=== PATIENT | female | born 1940 | race Caucasian/White ===

== ENCOUNTER 2018-06-27 15:15 | Inpatient (IN) ==
[2018-06-27] MEDS ORDERED: Artificial Tears SOLN 15 ML BOTTLE BOTH EYES PRN (15:32)
[2018-06-27] MEDS ORDERED: Fluticasone Propionate Nasal 50 MCG/SPRAY BOTTLE NS PRN (15:32)
[2018-06-27] MEDS ORDERED: Nystatin POWDER 30 GM BOTTLE TP PRN (15:32)
[2018-06-27] MEDS ORDERED: MAGNESIUM OXIDE 400 MG PO SCH (16:00)
[2018-06-27] MEDS ORDERED: Levalbuterol Neb 1.25 MG/3 ML ONE (16:36)
[2018-06-27] MEDS: Levalbuterol Neb 1.25 MG/3 ML IH SCH ×2 (16:38→22:51)
[2018-06-27] MEDS: Insulin NPH/REG 70/30 100 UNIT/ML (x5UNIT) SQ SCH (18:06)
[2018-06-27] MEDS: *HR* Warfarin 5 MG TABLET PO SCH (18:10)
[2018-06-27] MEDS: *HR* Enoxaparin 150 MG/ML SYRINGE SQ SCH (18:13)
[2018-06-27] MEDS ORDERED: Dextrose 4 GM Chewable Tablets PO PRN ×2 (18:41)
[2018-06-27] MEDS ORDERED: Dextrose Gel 15 GM/37.5 ML TUBE PO PRN ×2 (18:41)
[2018-06-27] MEDS ORDERED: D5% in Water 1,000 ML IVC PRN (18:41)
[2018-06-27] MEDS ORDERED: *HR* Dextrose 50 % in Water (Syg) 50 ML SYRINGE IVP PRN (18:41)
[2018-06-27] MEDS: Insulin LISPRO 300 UNITS/3 ML VIAL SQ SCH (21:39)
[2018-06-28] MEDS: Levalbuterol Neb 1.25 MG/3 ML IH SCH ×4 (05:35→21:41)
[2018-06-28] MEDS: *HR* Enoxaparin 150 MG/ML SYRINGE SQ SCH (05:45)
[2018-06-28 07:01] LABS: Basophils % 0.1 %; Eosinophils % 0.2 %; Hematocrit 27.5 % (35.3-44.9); Hemoglobin 8.4 g/dL (11.5-15.4); Immature Granulocytes % 1.7 % (0-4); Lymphocytes # 1.7 K/mcL (0.6-4.6); Lymphocytes % 13.7 %; Mean Corpuscular HGB Conc 30.5 g/dL (31.6-35.5); Mean Corpuscular Hemoglobin 27.5 pg (28.0-33.3); Mean Corpuscular Volume 89.9 fL (83.0-100.0); Mean Platelet Volume 10.7 fL (9.4-12.4); Monocytes # 1.3 K/mcL (0.0-1.3); Monocytes % 10.3 %; Neutrophils # 9.1 K/mcL (1.6-8.9); Nucleated Red Blood Cells 0.2 /100 WBC (0); Platelet Count 297 K/mcL (140-400); Red Blood Count 3.06 M/mcL (3.82-4.97); Red Cell Distribution Width 18.6 % (11.5-14.5)
[2018-06-28 07:18] LABS: INR 2.2; Prothrombin Time 24.7 Seconds (9.4-12.1)
[2018-06-28 07:20] LABS: Activated Partial Thrombo Time 36.3 Seconds (26.0-36.0)
[2018-06-28 07:29] LABS: BUN/Creatinine Ratio 51 (6-26); Blood Urea Nitrogen 43 mg/dL (8-23); Calcium 8.7 mg/dL (8.6-10.3); Carbon Dioxide 32 mEq/L (23-29); Chloride 103 mEq/L (98-107); Glucose 105 mg/dL (70-105); Osmolality,Calculated 301 (280-300); Sodium 140 mEq/L (136-145); eGFR For Non-African Americans > 60 (> 60)
[2018-06-28] MEDS: Furosemide 20 MG TABLET PO SCH (08:29)
[2018-06-28] MEDS: Multivit/Ca/Min/Fe/FA 1 TAB TABLET PO SCH (08:29)
[2018-06-28] MEDS: Folic Acid 1 MG TABLET PO SCH (08:29)
[2018-06-28] MEDS: Aspirin Enteric Coated 81 MG Tablet PO SCH (08:29)
[2018-06-28] MEDS: Sulfamethoxazole/Trimeth DS 1 EACH TABLET PO SCH (08:29)
[2018-06-28] MEDS: Cholecalciferol (D-3) 1,000 UNIT TABLET PO SCH (08:30)
[2018-06-28] MEDS: BuPROPion XL (24 HR) 150 MG TABLET PO SCH (08:30)
[2018-06-28] MEDS: Diltiazem CD (24hr) 180 MG CAPSULE PO SCH (08:31)
[2018-06-28] MEDS: Insulin LISPRO 300 UNITS/3 ML VIAL SQ SCH ×4 (08:31→21:27)
[2018-06-28] MEDS ORDERED: *HR* Dextrose 50 % in Water (Vial) 50 ML VIAL IVP PRN (10:00)
[2018-06-28] MEDS: Insulin NPH/REG 70/30 100 UNIT/ML (x5UNIT) SQ SCH ×2 (12:00→19:22)
--- NOTE | 2018-06-28 16:53 | Internal Med History&Physical ---
Date of Encounter: 06/28/18 Time of Encounter: 15:50 Assessment and Plan (1) Bacterial infection due to Proteus mirabilis Current visit: No Status: Acute Continue ertapenem through 07/03/2018. Lactobacillus will be added. (2) Pulmonary interstitial fibrosis Current visit: No Status: Chronic Continue oxygen 09/11. (3) Hypomagnesemia Current visit: No Status: Acute Monitor magnesium level. (4) Anemia Current visit: No Status: Chronic Check anemia testing in a.m. Qualifiers: Anemia type: iron deficiency Iron deficiency anemia type: unspecified iron deficiency Qualified Code(s): D50.9 - Iron deficiency anemia, unspecified (5) Acute on chronic diastolic CHF (congestive heart failure) Current visit: No Status: Acute Check BN peptide in a.m. (6) Type 2 diabetes mellitus Current visit: No Status: Chronic Hemoglobin A1c was 9.3% on 04/16/2018. Recheck in a.m. 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 Qualifiers: Atrial fibrillation type: chronic Qualified Code(s): I48.2 - Chronic atrial fibrillation (8) Right leg DVT Current visit: No Status: Chronic Continue Coumadin and monitor pro time Qualifiers: Affected thrombotic vein of extremity: unspecified vein of extremity Chronicity: acute Qualified Code(s): I82.401 - Acute embolism and thrombosis of unspecified deep veins of right lower extremity (9) Weakness Current visit: No Status: Acute PT and OT evaluations have been ordered. Internal Medicine - H&P: HPI Chief complaint: Cough and dyspnea Admitted From: Hospital to Hospital Transfer Plans for Post Hospital Care: Home History of present illness: Ms. Robles is a 78 year old female who was hospitalized at [facility] June 21- with diagnosis of bilateral pneumonia. Sputum and urine culture grew MDR Proteus mirabilis. She was treated during hospitalization with Zosyn. She was discharged to swing bed at [facility] to received ertapenem for 6 days. She also will receive PT and OT for strengthening prior to returning home. Respiratory history is significant for having smoked from approximately age 26- 48. She had pulmonary function testing done 07/03/2015 which showed FVC 67% predicted, FEV1 82% predicted, FEV1/FVC 92%, MVV 93% predicted, RV 70% predicted, and DLCO (corrected) 76% predicted. She was diagnosed with restrictive lung disease. She claims she was diagnosed with idiopathic pulmonary fibrosis at [facility] approximately 2014. Lung biopsy has not been done and she does not receive therapy specific for this. She uses oxygen at home 09/11. She does not recall being tested for sleep apnea. Past Med Surg Social Fam HX - Past Medical History Medical history: arthritis, asthma, atrial fibrillation, CHF, COPD, CVA, DVT, diabetes, hypertension, other Additional medical history: Chronic UTI. Pulmonary fibrosis Psychiatric history: depression - Past Surgical History Surgical History: , cataract, cholecystectomy, herniorrhaphy, knee replacement, orthopedic, other Additional surgical history: Shoulder replacement bilat. L Knee Replacement - Social History Smoking Status: Former smoker Smokeless Tobacco Status: No Alcohol use: none Drug use: none - Family History Brother Hx Family Cancer: Yes Mother Living Status: Hx Family Cardiac Disorders: Yes (patient thinks it was A fib.) Hx Family Respiratory Disorders: No Hx Family Cancer: No Hx Family GI Disorders: No Hx Family Endocrine Disorder: No Hx Family Neurologic Disorders: Yes (Epilepsy) Sister Hx Family Cardiac Disorders: Yes (pacemaker, CHF) Hx Family Cancer: Yes Hx Family Endocrine Disorder: Yes (DM) Internal Medicine - H&P: Meds Escitalopram [Lexapro] 20 mg PO HS 12/29/15 [History] Lipase/Protease/Amylase [Beth Dr 12,000 Units Capsule] 36,000 tab PO TID 10/14/16 [History] Loperamide HCl [Imodium A-D] 2 mg PO QID PRN 10/14/16 [History] Fluticasone Propionate Nasal [Flonase] 2 spr NS BID PRN 10/01/17 [History] Multivitamin [One Daily Multivitamin] 1 tab PO DAILY 11/01/17 [History] Aspirin [Adult Aspirin] 81 mg PO DAILY 02/11/18 [History] Bupropion HCl [Wellbutrin Xl] 300 mg PO DAILY 02/16/18 [History] Magnesium Oxide [Magnesium] 400 mg PO 5XD 04/12/18 [History] Albuterol Sulfate [Proair Hfa] 2 puff IH DAILY PRN 06/13/18 [History] Cholecalciferol (Vitamin D3) [Vitamin D3] 2,000 unit PO DAILY 06/13/18 [History] Dextran 70/Hypromellose [Artificial Tears Eye Drops] 2 drop BOTH EYES DAILY PRN 06/13/18 [History] Ferrous Sulfate [Iron] 650 mg PO DAILY 06/13/18 [History] Folic Acid 1 mg PO DAILY 06/13/18 [History] Insulin NPH Hum/Reg Insulin Hm [Humulin 70/30 Kwikpen] 80 unit SQ BID 06/13/18 [History] Mupirocin [Bactroban Oint] 1 appl NS DAILY PRN 06/13/18 [History] Nystatin POWDER [Nystop] 1 appl TP BID PRN 06/13/18 [History] Diltiazem CD (24hr) [Cardizem CD] 360 mg PO DAILY 30 Days #60 cap.er.24h 06/17/18 [Rx] Levalbuterol Neb [Xopenex Neb] 1.25 mg IH Q6H 14 Days #42 vial.neb 06/17/18 [Rx] Metoprolol [Lopressor] 12.5 mg PO BID 30 Days #60 tablet 06/17/18 [Rx] Warfarin [Coumadin] 5 mg PO DAILY 06/24/18 [History] Enoxaparin [Lovenox] 120 mg SQ Q12H 30 Days #30 syringe 06/27/18 [Rx] Furosemide [Lasix] 20 mg PO DAILY 30 Days #30 tablet 06/27/18 [Rx] Sulfamethoxazole/Trimeth DS [Bactrim DS] 1 each PO DAILY 06/27/18 [History] Sulfamethoxazole/Trimeth DS [Bactrim DS] 1 each PO DAILY 06/27/18 [History] Allergy/AdvReac Type Severity Reaction Status Date / Time levofloxacin [From Levaquin] Allergy Seizure Verified 06/13/18 21:08 hydromorphone [From Dilaudid] AdvReac Vomiting Verified 06/13/18 21:08 morphine AdvReac Vomiting Verified 06/13/18 21:08 oxycodone [From Percocet] AdvReac Vomiting Verified 06/13/18 21:08 propoxyphene AdvReac Vomiting Verified 06/13/18 21:08 [From Michael-N 100] All Systems PM: A 10-system review of systems was performed and is negative for pertinent findings except as documented above in the HPI. Review of systems: Gen.: She reports she has lost 30 pounds of weight in the last 6 months. This is not confirmed by reviewing hospitalization weights showing [facility] hospitalization May 2017 (130 kg) decrease to present weight of 125.191 kg. Cardiovascular: She has history of hypertension and chronic atrial fibrillation. She has history of diastolic heart failure. Echocardiogram 04/21/2018 showed LVEF of 55%. Diastolic function could not be quantitatively assessed because of atrial fibrillation. There was mild tricuspid regurgitation and moderate pulmonary hypertension with estimated RVSP of 51 mmHg. The interventricular septum and posterior wall thickness measurements were 1.07 and 0.69 cm respectively. She has history of right leg DVT diagnosed a few weeks ago. She was previously on Eliquis and aspirin but states she is now on Coumadin. She denies pulmonary embolus. Respiratory: As per history of present illness GI: She has had cholecystectomy. She reports exocrine pancreatic insufficiency and uses Creon. She denies disorders of her liver. : She has had occasional UTIs. She denies other kidney or bladder disorders. Neurologic: She reports having a "stroke" in 2015 with resolution of all neurolo gic deficits within 24 hours. She was previously on aspirin and Eliquis but states she is now on Coumadin and does not take aspirin. Her medication discharge list from [facility] does include aspirin. Endocrine: She was diagnosed with DM 2 approximately 40 years ago. She denies thyroid disease or hyperlipidemia Hematology/oncology: She has had long-standing anemia and received iron infusion recently. She denies internal malignancies or other blood disorders. Psychiatric: She has depression but denies anxiety or other mental health issues. Musko skeletal: She has DJD. She has had bilateral total shoulder replacements and left total knee replacement. She had right arm fracture with surgical re pair remotely. She denies gout. - Constitutional Vitals: Temp Pulse Resp BP Pulse Ox 97.8 F 89 18 131/69 97 06/28/18 07:00 06/28/18 07:00 06/28/18 15:56 06/28/18 07:00 06/28/18 15:56 Exam: Gen.: She is a well-developed obese female sitting in a chair at bedside who appears in no acute distress HEENT: Head is atraumatic and normocephalic. Eyes: EOMI. There is no scleral icterus. Mouth: Mucosa is moist. Neck: Supple and nontender. There is no thyromegaly or adenopathy noted. Heart: Irregularly irregular without murmurs or gallops Lungs: No wheezes crackles or egophony are heard. Abdomen: She has a large abdomen. It is nontender to palpation. Extremities: She has trace edema of the lower anterior shins bilaterally. Dorsalis pedis and posterior tibial pulses are trace palpable bilaterally. Neurologic: Mental status: She is talkative and a good historian. Cranial nerves: Smile is symmetric. Forehead wrinkles bilaterally. Tongue protrudes midline. EOMI. Motor: There is no pronator drift. Cerebellar: Finger to nose is intact bilaterally. Skin: Warm and dry Internal Med - H&P Results - Labs CBC & Chem 7: 06/28/18 06:36 06/28/18 06:36 Labs: Short CBC 06/28/18 Range/Units 06:36 WBC 12.3 H (4.3-11.1) K/mcL Hgb 8.4 L (11.5-15.4) g/dL Hct 27.5 L (35.3-44.9) % Plt Count 297 (140-400) K/mcL Neutrophils # 9.1 H (1.6-8.9) K/mcL BMP 06/28/18 06:36 Sodium 140 Potassium 4.0 Chloride 103 Carbon Dioxide 32 H BUN 43 H Creatinine 0.84 Glucose 105 Calcium 8.7
[2018-06-28] MEDS: *HR* Warfarin 5 MG TABLET PO SCH (18:30)
[2018-06-28] MEDS: Ertapenem 1,000 MG in 0.9 % Sodium Chloride Mini Bag 100 ML IVPB SCH (19:16)
[2018-06-28] MEDS: Lactobacillus 1 EACH CAP.SPRINK PO SCH (21:31)
[2018-06-29] MEDS: Levalbuterol Neb 1.25 MG/3 ML IH SCH ×4 (05:29→23:24)
[2018-06-29 07:52] LABS: INR 2.2
[2018-06-29] MEDS: Cholecalciferol (D-3) 1,000 UNIT TABLET PO SCH (07:55)
[2018-06-29] MEDS: Aspirin Enteric Coated 81 MG Tablet PO SCH (07:55)
[2018-06-29] MEDS: Folic Acid 1 MG TABLET PO SCH (07:56)
[2018-06-29] MEDS: Multivit/Ca/Min/Fe/FA 1 TAB TABLET PO SCH (07:56)
[2018-06-29] MEDS: BuPROPion XL (24 HR) 150 MG TABLET PO SCH (07:56)
[2018-06-29] MEDS: Diltiazem CD (24hr) 180 MG CAPSULE PO SCH (07:57)
[2018-06-29] MEDS: Lactobacillus 1 EACH CAP.SPRINK PO SCH ×2 (07:57→20:17)
[2018-06-29] MEDS: Insulin NPH/REG 70/30 100 UNIT/ML (x5UNIT) SQ SCH ×2 (07:58→17:32)
[2018-06-29] MEDS: Furosemide 20 MG TABLET PO SCH (07:58)
[2018-06-29] MEDS: Insulin LISPRO 300 UNITS/3 ML VIAL SQ SCH ×4 (07:58→20:19)
[2018-06-29] MEDS: Sulfamethoxazole/Trimeth DS 1 EACH TABLET PO SCH (07:58)
[2018-06-29 08:06] LABS: Magnesium 1.5 mg/dL (1.6-2.6)
[2018-06-29 09:08] LABS: Estimated Average Glucose 197 mg/dl; Hemoglobin A1C 8.5 %
[2018-06-29 10:07] LABS: Folate > 22.3 ng/mL (3.0-16.0); Vitamin B12 773 pg/mL (250-1100)
[2018-06-29] MEDS: *HR* Warfarin 5 MG TABLET PO SCH (17:30)
[2018-06-29] MEDS: Ertapenem 1,000 MG in 0.9 % Sodium Chloride Mini Bag 100 ML IVPB SCH (17:31)
--- NOTE | 2018-06-29 20:04 | Internal Med Progress Note ---
Date of Encounter: 06/29/18 Time of Encounter: 19:50 - Assessment and plan (1) Bacterial infection due to Proteus mirabilis Current Visit: No Status: Acute Assessment and plan: June 29. Continue ertapenem through 07/03/2018 with lactobacillus. (2) Pulmonary interstitial fibrosis Current Visit: No Status: Chronic Assessment and plan: June 29. Continue oxygen 24/7. (3) Hypomagnesemia Current Visit: No Status: Acute Assessment and plan: June 29. Magnesium level has decreased to 1.5. Restart magnesium oxide at a dose 400 mg twice a day. (4) Anemia Current Visit: No Status: Chronic Assessment and plan: June 29. Anemia testing shows iron 45, transferrin saturation 14%, transferrin 225, ferritin 395, B12 773, and folate > 22.3. Will order iron dextran in a.m. Qualifiers: Anemia type: iron deficiency Iron deficiency anemia type: unspecified iron deficiency Qualified Code(s): D50.9 - Iron deficiency anemia, unspecified (5) Acute on chronic diastolic CHF (congestive heart failure) Current Visit: No Status: Acute Assessment and plan: June 29. BN peptide slightly elevated at 227. Continue Lopressor. Change Lasix to Bumex. (6) Type 2 diabetes mellitus Current Visit: No Status: Chronic Assessment and plan: June 29. Hemoglobin A1c 8.5%. Continue Humulin 70/30 with Accu-Cheks and SSI. 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 Continue Coumadin and Lopressor. Qualifiers: Atrial fibrillation type: chronic Qualified Code(s): I48.2 - Chronic atrial fibrillation (8) Right leg DVT Current Visit: No Status: Chronic Assessment and plan: June 29. Continue Coumadin Qualifiers: Affected thrombotic vein of extremity: unspecified vein of extremity Chronicity: acute Qualified Code(s): I82.401 - Acute embolism and thrombosis of unspecified deep veins of right lower extremity (9) Weakness Current Visit: No Status: Acute Assessment and plan: June 29. Continue PT and OT intervention. - Subjective Interval history: March 13. She has no new complaints. - Constitutional Vitals: Temp Pulse Resp BP Pulse Ox 98.4 F 99 18 148/70 99 06/29/18 19:01 06/29/18 19:01 06/29/18 19:01 06/29/18 19:01 06/29/18 19:01 Exam: She is resting comfortably in bed and appears in no acute distress. Her affect is cheerful. I reviewed her medications and lab results. Internal Medicine: Result - Labs CBC & Chem 7: 06/28/18 06:36 06/28/18 06:36 - ABG Interpretation ABG results: PT/INR, D-dimer PT 25.0 Seconds (9.4-12.1) H 06/29/18 07:35 Consult Discharge Plan - Plan Referrals: NONE,PCP [Primary Care Provider] - 1 week
[2018-06-29] MEDS: Magnesium Oxide 400 MG TABLET PO SCH (20:43)
[2018-06-30] MEDS: Levalbuterol Neb 1.25 MG/3 ML IH SCH ×3 (04:32→15:56)
[2018-06-30] MEDS: Cholecalciferol (D-3) 1,000 UNIT TABLET PO SCH (07:47)
[2018-06-30] MEDS: BuPROPion XL (24 HR) 150 MG TABLET PO SCH (07:47)
[2018-06-30] MEDS: Bumetanide 1 MG TABLET PO SCH (07:47)
[2018-06-30] MEDS: Magnesium Oxide 400 MG TABLET PO SCH ×2 (07:47→22:41)
[2018-06-30] MEDS: Diltiazem CD (24hr) 180 MG CAPSULE PO SCH (07:47)
[2018-06-30] MEDS: Aspirin Enteric Coated 81 MG Tablet PO SCH (07:47)
[2018-06-30] MEDS: Multivit/Ca/Min/Fe/FA 1 TAB TABLET PO SCH (07:48)
[2018-06-30] MEDS: Sulfamethoxazole/Trimeth DS 1 EACH TABLET PO SCH (07:48)
[2018-06-30] MEDS: Lactobacillus 1 EACH CAP.SPRINK PO SCH ×2 (07:48→22:40)
[2018-06-30] MEDS: Insulin LISPRO 300 UNITS/3 ML VIAL SQ SCH ×4 (07:48→22:42)
[2018-06-30] MEDS ORDERED: Iron Dextran Complex 1,000 MG in 0.9 % Sodium Chloride 500 ML IVPB ONE (08:00)
[2018-06-30] MEDS: Insulin NPH/REG 70/30 100 UNIT/ML (x5UNIT) SQ SCH ×2 (09:33→17:32)
[2018-06-30] MEDS ORDERED: IRON DEXTRAN COMPLEX IVPB ONE (10:00)
[2018-06-30] MEDS ORDERED: SODIUM CHLORIDE 0.9% IVPB ONE (10:00)
[2018-06-30] MEDS: Ertapenem 1,000 MG in 0.9 % Sodium Chloride Mini Bag 100 ML IVPB SCH (17:10)
[2018-06-30] MEDS: *HR* Warfarin 5 MG TABLET PO SCH (17:11)
[2018-07-01] MEDS: Levalbuterol Neb 1.25 MG/3 ML IH SCH ×5 (00:09→21:28)
[2018-07-01 06:33] LABS: eGFR For Non-African Americans > 60 (> 60)
[2018-07-01 07:33] LABS: INR 1.8; Prothrombin Time 20.8 Seconds (9.4-12.1)
[2018-07-01 07:36] LABS: Activated Partial Thrombo Time 32.8 Seconds (26.0-36.0)
[2018-07-01] MEDS: Insulin LISPRO 300 UNITS/3 ML VIAL SQ SCH ×4 (08:52→20:11)
[2018-07-01] MEDS: Aspirin Enteric Coated 81 MG Tablet PO SCH (08:53)
[2018-07-01] MEDS: Magnesium Oxide 400 MG TABLET PO SCH ×2 (08:53→20:11)
[2018-07-01] MEDS: Insulin NPH/REG 70/30 100 UNIT/ML (x5UNIT) SQ SCH ×2 (08:53→16:30)
[2018-07-01] MEDS: Diltiazem CD (24hr) 180 MG CAPSULE PO SCH (08:53)
[2018-07-01] MEDS: Bumetanide 1 MG TABLET PO SCH (08:54)
[2018-07-01] MEDS: Lactobacillus 1 EACH CAP.SPRINK PO SCH ×2 (08:54→20:11)
[2018-07-01] MEDS: Cholecalciferol (D-3) 1,000 UNIT TABLET PO SCH (08:54)
[2018-07-01] MEDS: Multivit/Ca/Min/Fe/FA 1 TAB TABLET PO SCH (08:54)
[2018-07-01] MEDS: BuPROPion XL (24 HR) 150 MG TABLET PO SCH (08:54)
[2018-07-01] MEDS: Sulfamethoxazole/Trimeth DS 1 EACH TABLET PO SCH (08:54)
[2018-07-01 16:55] LABS: Basophils % 0.3 %; Eosinophils # 0.3 K/mcL (0.0-0.6); Eosinophils % 2.1 %; Hematocrit 31.3 % (35.3-44.9); Hemoglobin 9.8 g/dL (11.5-15.4); Immature Granulocytes % 2.7 % (0-4); Lymphocytes # 2.7 K/mcL (0.6-4.6); Lymphocytes % 19.1 %; Mean Corpuscular HGB Conc 31.3 g/dL (31.6-35.5); Mean Corpuscular Hemoglobin 28.7 pg (28.0-33.3); Mean Corpuscular Volume 91.8 fL (83.0-100.0); Monocytes # 1.5 K/mcL (0.0-1.3); Monocytes % 10.3 %; Neutrophils # 9.2 K/mcL (1.6-8.9); Platelet Count 301 K/mcL (140-400); Red Blood Count 3.41 M/mcL (3.82-4.97); Red Cell Distribution Width 19.1 % (11.5-14.5); Segmented Neutrophils % 65.5 %
[2018-07-01] MEDS: Ertapenem 1,000 MG in 0.9 % Sodium Chloride Mini Bag 100 ML IVPB SCH (17:49)
[2018-07-01] MEDS: *HR* Warfarin 5 MG TABLET PO SCH (17:49)
[2018-07-02] MEDS: Levalbuterol Neb 1.25 MG/3 ML IH SCH ×4 (04:25→22:16)
[2018-07-02 07:11] LABS: Basophils % 0.3 %; Eosinophils # 0.3 K/mcL (0.0-0.6); Eosinophils % 2.6 %; Hematocrit 32.4 % (35.3-44.9); Hemoglobin 9.8 g/dL (11.5-15.4); Immature Granulocytes % 2.9 % (0-4); Lymphocytes # 1.8 K/mcL (0.6-4.6); Lymphocytes % 16.3 %; Mean Corpuscular HGB Conc 30.2 g/dL (31.6-35.5); Mean Corpuscular Hemoglobin 28.1 pg (28.0-33.3); Mean Corpuscular Volume 92.8 fL (83.0-100.0); Mean Platelet Volume 10.6 fL (9.4-12.4); Monocytes # 1.1 K/mcL (0.0-1.3); Platelet Count 303 K/mcL (140-400); Red Blood Count 3.49 M/mcL (3.82-4.97); Red Cell Distribution Width 19.7 % (11.5-14.5); Segmented Neutrophils % 67.9 %
[2018-07-02 07:18] LABS: INR 1.8; Prothrombin Time 20.7 Seconds (9.4-12.1)
[2018-07-02 07:24] LABS: BUN/Creatinine Ratio 25 (6-26); Blood Urea Nitrogen 23 mg/dL (8-23); Calcium 8.8 mg/dL (8.6-10.3); Carbon Dioxide 30 mEq/L (23-29); Chloride 98 mEq/L (98-107); Glucose 90 mg/dL (70-105); Magnesium 1.9 mg/dL (1.6-2.6); Neutrophils # 7.7 K/mcL (1.6-8.9); Osmolality,Calculated 287 (280-300); Sodium 137 mEq/L (136-145); eGFR For Non-African Americans 59 (> 60)
[2018-07-02] MEDS ORDERED: Insulin NPH/REG 70/30 100 UNIT/ML (x5UNIT) SQ SCH ×2 (09:14→17:00)
[2018-07-02] MEDS: Sulfamethoxazole/Trimeth DS 1 EACH TABLET PO SCH (09:16)
[2018-07-02] MEDS: Lactobacillus 1 EACH CAP.SPRINK PO SCH ×2 (09:16→20:28)
[2018-07-02] MEDS: Cholecalciferol (D-3) 1,000 UNIT TABLET PO SCH (09:17)
[2018-07-02] MEDS: BuPROPion XL (24 HR) 150 MG TABLET PO SCH (09:17)
[2018-07-02] MEDS: Magnesium Oxide 400 MG TABLET PO SCH ×2 (09:17→20:29)
[2018-07-02] MEDS: Multivit/Ca/Min/Fe/FA 1 TAB TABLET PO SCH (09:17)
[2018-07-02] MEDS: Diltiazem CD (24hr) 180 MG CAPSULE PO SCH (09:17)
[2018-07-02] MEDS: Aspirin Enteric Coated 81 MG Tablet PO SCH (09:17)
[2018-07-02] MEDS: Bumetanide 1 MG TABLET PO SCH (09:17)
[2018-07-02] MEDS: Insulin LISPRO 300 UNITS/3 ML VIAL SQ SCH ×4 (09:18→20:30)
[2018-07-02] MEDS: Insulin NPH/REG 70/30 100 UNIT/ML (x5UNIT) SQ SCH ×3 (10:17→17:47)
[2018-07-02] MEDS: Ertapenem 1,000 MG in 0.9 % Sodium Chloride Mini Bag 100 ML IVPB SCH (17:21)
--- NOTE | 2018-07-02 17:21 | Internal Med Progress Note ---
Date of Encounter: 07/02/18 Time of Encounter: 17:10 - Assessment and plan (1) Bacterial infection due to Proteus mirabilis Current Visit: No Status: Acute Assessment and plan: June 29. Continue ertapenem through 07/03/2018 with lactobacillus. (2) Pulmonary interstitial fibrosis Current Visit: No Status: Chronic Assessment and plan: June 29. Continue oxygen 24/7. (3) Hypomagnesemia Current Visit: No Status: Acute Assessment and plan: June 29. Magnesium level has decreased to 1.5. Restart magnesium oxide at a dose 400 mg twice a day. July 02. Magnesium level improved to 1.9. Continue MgO 400 mg twice a day (4) Anemia Current Visit: No Status: Chronic Assessment and plan: June 29. Anemia testing shows iron 45, transferrin saturation 14%, transferrin 225, ferritin 395, B12 773, and folate > 22.3. Will order iron dextran in a.m. June 30. Hemoglobin stable at 9.8. Continue to monitor. Qualifiers: Anemia type: iron deficiency Iron deficiency anemia type: unspecified iron deficiency Qualified Code(s): D50.9 - Iron deficiency anemia, unspecified (5) Acute on chronic diastolic CHF (congestive heart failure) Current Visit: No Status: Acute Assessment and plan: June 29. BN peptide slightly elevated at 227. Continue Lopressor. Change Lasix to Bumex. (6) Type 2 diabetes mellitus Current Visit: No Status: Chronic Assessment and plan: June 29. Hemoglobin A1c 8.5%. Continue Humulin 70/30 with Accu-Cheks and SSI. July 02. Humulin 70/30 dose decreased to 20 units twice a day because of hypoglycemia yesterday. Continue Accu-Cheks with SSI. 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 Continue Coumadin and Lopressor. Qualifiers: Atrial fibrillation type: chronic Qualified Code(s): I48.2 - Chronic atrial fibrillation (8) Right leg DVT Current Visit: No Status: Chronic Assessment and plan: June 29. Continue Coumadin July 02. INR slightly low at 1.8. Increase Coumadin dose to 6 mg daily and continue to monitor labs. Qualifiers: Affected thrombotic vein of extremity: unspecified vein of extremity Chronicity: acute Qualified Code(s): I82.401 - Acute embolism and thrombosis of unspecified deep veins of right lower extremity (9) Weakness Current Visit: No Status: Acute Assessment and plan: June 29. Continue PT and OT intervention. - Subjective Interval history: June 29. She has no new complaints. July 02. She has no new complaints and feels better. - Constitutional Vitals: Temp Pulse Resp BP Pulse Ox 97.4 F L 92 18 108/57 97 07/02/18 06:00 07/02/18 06:00 07/02/18 15:39 07/02/18 06:00 07/02/18 15:39 Exam: She is resting comfortably in a chair at bedside and appears in no acute distress. Her affect is bright and cheerful. I reviewed her medications and l ab results. Internal Medicine: Result - Labs CBC & Chem 7: 07/02/18 04:53 07/02/18 04:53 Labs: Short CBC 07/02/18 Range/Units 04:53 WBC 11.3 H (4.3-11.1) K/mcL Hgb 9.8 L (11.5-15.4) g/dL Hct 32.4 L (35.3-44.9) % Plt Count 303 (140-400) K/mcL Neutrophils # 7.7 (1.6-8.9) K/mcL BMP 07/02/18 04:53 Sodium 137 Potassium 4.0 Chloride 98 Carbon Dioxide 30 H BUN 23 Creatinine 0.93 Glucose 90 Calcium 8.8 - ABG Interpretation ABG results: PT/INR, D-dimer PT 20.7 Seconds (9.4-12.1) H 07/02/18 04:53 Consult Discharge Plan - Plan Referrals: NONE,PCP [Primary Care Provider] - 1 week
[2018-07-02] MEDS: *HR* Warfarin 5 MG TABLET PO SCH (17:23)
[2018-07-02] MEDS: *HR* Warfarin 3 MG TABLET PO SCH (17:46)
[2018-07-03] MEDS: Levalbuterol Neb 1.25 MG/3 ML IH SCH ×4 (04:37→21:37)
[2018-07-03] MEDS: Diltiazem CD (24hr) 180 MG CAPSULE PO SCH (09:11)
[2018-07-03] MEDS: BuPROPion XL (24 HR) 150 MG TABLET PO SCH (09:11)
[2018-07-03] MEDS: Sulfamethoxazole/Trimeth DS 1 EACH TABLET PO SCH (09:12)
[2018-07-03] MEDS: Magnesium Oxide 400 MG TABLET PO SCH ×2 (09:12→21:12)
[2018-07-03] MEDS: Insulin LISPRO 300 UNITS/3 ML VIAL SQ SCH ×4 (09:12→21:12)
[2018-07-03] MEDS: Bumetanide 1 MG TABLET PO SCH (09:12)
[2018-07-03] MEDS: Multivit/Ca/Min/Fe/FA 1 TAB TABLET PO SCH (09:12)
[2018-07-03] MEDS: Aspirin Enteric Coated 81 MG Tablet PO SCH (09:12)
[2018-07-03] MEDS: Cholecalciferol (D-3) 1,000 UNIT TABLET PO SCH (09:12)
[2018-07-03] MEDS: Lactobacillus 1 EACH CAP.SPRINK PO SCH ×2 (09:12→21:12)
[2018-07-03] MEDS: Insulin NPH/REG 70/30 100 UNIT/ML (x5UNIT) SQ SCH ×2 (09:13→18:37)
[2018-07-03] MEDS: *HR* Warfarin 3 MG TABLET PO SCH (17:09)
[2018-07-03] MEDS: Ertapenem 1,000 MG in 0.9 % Sodium Chloride Mini Bag 100 ML IVPB SCH (17:10)
[2018-07-03 19:28] LABS: INR 2.1; Prothrombin Time 24.1 Seconds (9.4-12.1)
[2018-07-04] MEDS: Levalbuterol Neb 1.25 MG/3 ML IH SCH ×4 (04:55→21:34)
[2018-07-04 06:49] LABS: Basophils % 0.2 %; Eosinophils # 0.2 K/mcL (0.0-0.6); Eosinophils % 2.5 %; Hematocrit 30.5 % (35.3-44.9); Hemoglobin 9.2 g/dL (11.5-15.4); Lymphocytes # 1.1 K/mcL (0.6-4.6); Lymphocytes % 11.9 %; Mean Corpuscular HGB Conc 30.2 g/dL (31.6-35.5); Mean Corpuscular Hemoglobin 27.9 pg (28.0-33.3); Mean Corpuscular Volume 92.4 fL (83.0-100.0); Mean Platelet Volume 10.5 fL (9.4-12.4); Monocytes # 1.3 K/mcL (0.0-1.3); Monocytes % 14.1 %; Neutrophils # 6.1 K/mcL (1.6-8.9); Platelet Count 254 K/mcL (140-400); Red Cell Distribution Width 18.7 % (11.5-14.5); Segmented Neutrophils % 69.3 %
[2018-07-04 07:15] LABS: Calcium 8.7 mg/dL (8.6-10.3); Magnesium 1.8 mg/dL (1.6-2.6); Potassium 5.1 mEq/L (3.5-5.1)
[2018-07-04] MEDS: Aspirin Enteric Coated 81 MG Tablet PO SCH (08:18)
[2018-07-04] MEDS: Bumetanide 1 MG TABLET PO SCH (08:18)
[2018-07-04] MEDS: Magnesium Oxide 400 MG TABLET PO SCH ×2 (08:19→20:57)
[2018-07-04] MEDS: Sulfamethoxazole/Trimeth DS 1 EACH TABLET PO SCH (08:19)
[2018-07-04] MEDS: Lactobacillus 1 EACH CAP.SPRINK PO SCH ×2 (08:19→20:57)
[2018-07-04] MEDS: Cholecalciferol (D-3) 1,000 UNIT TABLET PO SCH (08:20)
[2018-07-04] MEDS: Diltiazem CD (24hr) 180 MG CAPSULE PO SCH (08:20)
[2018-07-04] MEDS: Multivit/Ca/Min/Fe/FA 1 TAB TABLET PO SCH (08:21)
[2018-07-04] MEDS: BuPROPion XL (24 HR) 150 MG TABLET PO SCH (08:21)
[2018-07-04] MEDS: Insulin LISPRO 300 UNITS/3 ML VIAL SQ SCH ×4 (08:23→21:32)
[2018-07-04] MEDS: Insulin NPH/REG 70/30 100 UNIT/ML (x5UNIT) SQ SCH ×2 (09:17→16:44)
[2018-07-04] MEDS: Ertapenem 1,000 MG in 0.9 % Sodium Chloride Mini Bag 100 ML IVPB SCH (16:39)
[2018-07-04] MEDS: *HR* Warfarin 3 MG TABLET PO SCH (17:55)
[2018-07-05] MEDS: Levalbuterol Neb 1.25 MG/3 ML IH SCH ×4 (04:05→21:13)
[2018-07-05] MEDS: Insulin LISPRO 300 UNITS/3 ML VIAL SQ SCH ×4 (08:28→20:08)
[2018-07-05] MEDS: Multivit/Ca/Min/Fe/FA 1 TAB TABLET PO SCH (08:34)
[2018-07-05] MEDS: Diltiazem CD (24hr) 180 MG CAPSULE PO SCH (08:34)
[2018-07-05] MEDS: Cholecalciferol (D-3) 1,000 UNIT TABLET PO SCH (08:34)
[2018-07-05] MEDS: Magnesium Oxide 400 MG TABLET PO SCH ×2 (08:34→20:07)
[2018-07-05] MEDS: Bumetanide 1 MG TABLET PO SCH (08:34)
[2018-07-05] MEDS: Sulfamethoxazole/Trimeth DS 1 EACH TABLET PO SCH (08:34)
[2018-07-05] MEDS: Lactobacillus 1 EACH CAP.SPRINK PO SCH (08:34)
[2018-07-05] MEDS: Aspirin Enteric Coated 81 MG Tablet PO SCH (08:35)
[2018-07-05] MEDS: BuPROPion XL (24 HR) 150 MG TABLET PO SCH (08:35)
[2018-07-05] MEDS: Insulin NPH/REG 70/30 100 UNIT/ML (x5UNIT) SQ SCH ×2 (09:41→17:04)
[2018-07-05] MEDS: *HR* Warfarin 3 MG TABLET PO SCH (17:04)
[2018-07-06] MEDS: Levalbuterol Neb 1.25 MG/3 ML IH SCH ×3 (04:10→17:00)
[2018-07-06] MEDS: Insulin NPH/REG 70/30 100 UNIT/ML (x5UNIT) SQ SCH ×2 (07:58→17:25)
[2018-07-06] MEDS: Insulin LISPRO 300 UNITS/3 ML VIAL SQ SCH ×4 (07:58→20:27)
[2018-07-06] MEDS: Diltiazem CD (24hr) 180 MG CAPSULE PO SCH (07:59)
[2018-07-06] MEDS: Cholecalciferol (D-3) 1,000 UNIT TABLET PO SCH (07:59)
[2018-07-06] MEDS: BuPROPion XL (24 HR) 150 MG TABLET PO SCH (07:59)
[2018-07-06] MEDS: Multivit/Ca/Min/Fe/FA 1 TAB TABLET PO SCH (07:59)
[2018-07-06] MEDS: Sulfamethoxazole/Trimeth DS 1 EACH TABLET PO SCH (07:59)
[2018-07-06] MEDS: Magnesium Oxide 400 MG TABLET PO SCH ×2 (07:59→20:27)
[2018-07-06] MEDS: Aspirin Enteric Coated 81 MG Tablet PO SCH (07:59)
[2018-07-06] MEDS: Bumetanide 1 MG TABLET PO SCH (07:59)
[2018-07-06 08:18] LABS: Basophils % 0.5 %; Eosinophils # 0.3 K/mcL (0.0-0.6); Eosinophils % 3.5 %; Hematocrit 30.3 % (35.3-44.9); Hemoglobin 9.3 g/dL (11.5-15.4); Immature Granulocytes % 1.4 % (0-4); Lymphocytes # 1.5 K/mcL (0.6-4.6); Lymphocytes % 19.7 %; Mean Corpuscular HGB Conc 30.7 g/dL (31.6-35.5); Mean Corpuscular Hemoglobin 28.4 pg (28.0-33.3); Mean Corpuscular Volume 92.4 fL (83.0-100.0); Mean Platelet Volume 9.8 fL (9.4-12.4); Monocytes # 1.2 K/mcL (0.0-1.3); Monocytes % 15.1 %; Neutrophils # 4.7 K/mcL (1.6-8.9); Platelet Count 235 K/mcL (140-400); Red Blood Count 3.28 M/mcL (3.82-4.97); Red Cell Distribution Width 17.8 % (11.5-14.5); Segmented Neutrophils % 59.8 %
[2018-07-06 08:19] LABS: INR 3.1; Prothrombin Time 35.1 Seconds (9.4-12.1)
[2018-07-06 09:26] LABS: Albumin 3.5 g/dL (3.5-5.7); Albumin/Globulin Ratio 1.2 (1.1-2.2); Bilirubin,Total 0.6 mg/dL (0.3-1.0); Calcium 8.7 mg/dL (8.6-10.3); Potassium 5.1 mEq/L (3.5-5.1); Total Protein 6.5 g/dL (6.4-8.9)
--- NOTE | 2018-07-06 15:31 | Internal Med Progress Note ---
Date of Encounter: 07/06/18 Time of Encounter: 15:20 - Assessment and plan (1) Bacterial infection due to Proteus mirabilis Current Visit: No Status: Acute Assessment and plan: June 29. Continue ertapenem through 07/03/2018 with lactobacillus. (2) Pulmonary interstitial fibrosis Current Visit: No Status: Chronic Assessment and plan: June 29. Continue oxygen 24/7. (3) Hypomagnesemia Current Visit: No Status: Acute Assessment and plan: June 29. Magnesium level has decreased to 1.5. Restart magnesium oxide at a dose 400 mg twice a day. July 02. Magnesium level improved to 1.9. Continue MgO 400 mg twice a day July 06. Magnesium level stable at 2.0. (4) Anemia Current Visit: No Status: Chronic Assessment and plan: June 29. Anemia testing shows iron 45, transferrin saturation 14%, transferrin 225, ferritin 395, B12 773, and folate > 22.3. Will order iron dextran in a.m. June 30. Hemoglobin stable at 9.8. Continue to monitor. July 06. Hemoglobin stable at 9.3. Qualifiers: Anemia type: iron deficiency Iron deficiency anemia type: unspecified iron deficiency Qualified Code(s): D50.9 - Iron deficiency anemia, unspecified (5) Acute on chronic diastolic CHF (congestive heart failure) Current Visit: No Status: Acute Assessment and plan: June 29. BN peptide slightly elevated at 227. Continue Lopressor. Change Lasix to Bumex. July 06. BN peptide further increased to 3 and 24 but azotemia has worsened. Continue Bumex 0.5 mg daily. (6) Type 2 diabetes mellitus Current Visit: No Status: Chronic Assessment and plan: June 29. Hemoglobin A1c 8.5%. Continue Humulin 70/30 with Accu-Cheks and SSI. July 02. Humulin 70/30 dose decreased to 20 units twice a day because of hypoglycemia yesterday. Continue Accu-Cheks with SSI. July 06. Humulin 70/30 dose increased to 30 units twice a day with overall good control now. 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 Continue Coumadin and Lopressor. July 06. Continue Coumadin and Lopressor. Qualifiers: Atrial fibrillation type: chronic Qualified Code(s): I48.2 - Chronic atrial fibrillation (8) Right leg DVT Current Visit: No Status: Chronic Assessment and plan: June 29. Continue Coumadin July 02. INR slightly low at 1.8. Increase Coumadin dose to 6 mg daily and continue to monitor labs. Qualifiers: Affected thrombotic vein of extremity: unspecified vein of extremity Chronicity: acute Qualified Code(s): I82.401 - Acute embolism and thrombosis of unspecified deep veins of right lower extremity (9) Weakness Current Visit: No Status: Acute Assessment and plan: June 29. Continue PT and OT intervention. July 06. She has plateaued in progress with therapy. Arrangements are being made for her to go to SNF for ongoing care needs. (10) UTI (urinary tract infection) Current Visit: No Status: Acute Assessment and plan: July 06. She reports she was placed on low-dose prophylactic Septra for recurrent UTIs. I told her this will be held for at least 2 days due to worsening azotemia with hyperkalemia. Qualifiers: Urinary tract infection type: site unspecified Hematuria presence: without hematuria Qualified Code(s): N39.0 - Urinary tract infection, site not specified - Subjective Interval history: June 29. She has no new complaints. July 02. She has no new complaints and feels better. July 06. She states she feels tired from travel [place] today for 2 office visits. She has no complaints otherwise. - Constitutional Vitals: Temp Pulse Resp BP Pulse Ox 99.1 F 92 16 132/44 93 07/06/18 06:52 07/06/18 06:52 07/06/18 06:52 07/06/18 06:52 07/06/18 06:52 Exam: She is resting comfortably in a recliner chair with her feet elevated eating. Her affect is overall cheerful. I reviewed her medications and lab results. Internal Medicine: Result - Labs CBC & Chem 7: 07/06/18 08:00 07/06/18 08:00 Labs: Short CBC 07/06/18 Range/Units 08:00 WBC 7.8 (4.3-11.1) K/mcL Hgb 9.3 L (11.5-15.4) g/dL Hct 30.3 L (35.3-44.9) % Plt Count 235 (140-400) K/mcL Neutrophils # 4.7 (1.6-8.9) K/mcL BMP 07/06/18 08:00 Sodium 131 L Potassium 5.1 Chloride 95 L Carbon Dioxide 28 BUN 33 H Creatinine 1.37 H Glucose 155 H Calcium 8.7 Liver Function 07/06/18 Range/Units 08:00 Total Bilirubin 0.6 (0.3-1.0) mg/dL AST 21 (13-39) Units/L ALT 20 (7-52) Units/L Alkaline Phosphatase 88 (34-104) Units/L Albumin 3.5 (3.5-5.7) g/dL - ABG Interpretation ABG results: PT/INR, D-dimer PT 35.1 Seconds (9.4-12.1) H 07/06/18 08:00 Consult Discharge Plan - Plan Referrals: NONE,PCP [Primary Care Provider] - 1 week
[2018-07-06] MEDS ORDERED: Levalbuterol Neb 1.25 MG/3 ML IH PRN (16:45)
[2018-07-06] MEDS: *HR* Warfarin 3 MG TABLET PO SCH (17:25)
[2018-07-06] MEDS: Budesonide/Formoterol 160/4.5 1 PUFF INH IH SCH (21:40)
[2018-07-07 07:46] LABS: INR 3.9
[2018-07-07 07:49] LABS: Prothrombin Time 43.5 Seconds (9.4-12.1)
[2018-07-07] MEDS: Insulin LISPRO 300 UNITS/3 ML VIAL SQ SCH ×4 (08:07→20:12)
[2018-07-07] MEDS: Aspirin Enteric Coated 81 MG Tablet PO SCH (08:58)
[2018-07-07] MEDS: Magnesium Oxide 400 MG TABLET PO SCH ×2 (08:59→20:13)
[2018-07-07] MEDS: Cholecalciferol (D-3) 1,000 UNIT TABLET PO SCH (08:59)
[2018-07-07] MEDS: predniSONE 20 MG TABLET PO SCH ×2 (08:59→16:26)
[2018-07-07] MEDS: Diltiazem CD (24hr) 180 MG CAPSULE PO SCH (08:59)
[2018-07-07] MEDS: BuPROPion XL (24 HR) 150 MG TABLET PO SCH (08:59)
[2018-07-07] MEDS: Bumetanide 1 MG TABLET PO SCH (08:59)
[2018-07-07] MEDS: Multivit/Ca/Min/Fe/FA 1 TAB TABLET PO SCH (08:59)
[2018-07-07] MEDS: Azithromycin 250 MG TABLET PO SCH (09:00)
[2018-07-07] MEDS ORDERED: Azithromycin 250 MG TABLET PO SCH (09:00)
[2018-07-07] MEDS: Budesonide/Formoterol 160/4.5 1 PUFF INH IH SCH ×2 (09:56→22:43)
[2018-07-07] MEDS: *HR* Warfarin 3 MG TABLET PO SCH (11:14)
[2018-07-07] MEDS: Insulin NPH/REG 70/30 100 UNIT/ML (x5UNIT) SQ SCH ×2 (11:46→16:26)
[2018-07-08 06:47] VITALS: BP 125/52
[2018-07-08 07:31] LABS: INR 3.7; Prothrombin Time 41.9 Seconds (9.4-12.1)
[2018-07-08] MEDS: Bumetanide 1 MG TABLET PO SCH (08:08)
[2018-07-08] MEDS: BuPROPion XL (24 HR) 150 MG TABLET PO SCH (08:08)
[2018-07-08] MEDS: Magnesium Oxide 400 MG TABLET PO SCH (08:08)
[2018-07-08] MEDS: Cholecalciferol (D-3) 1,000 UNIT TABLET PO SCH (08:08)
[2018-07-08] MEDS: Aspirin Enteric Coated 81 MG Tablet PO SCH (08:08)
[2018-07-08] MEDS: predniSONE 20 MG TABLET PO SCH (08:09)
[2018-07-08] MEDS: Azithromycin 250 MG TABLET PO SCH (08:09)
[2018-07-08] MEDS: Multivit/Ca/Min/Fe/FA 1 TAB TABLET PO SCH (08:09)
[2018-07-08] MEDS: Diltiazem CD (24hr) 180 MG CAPSULE PO SCH (08:09)
[2018-07-08] MEDS: Insulin LISPRO 300 UNITS/3 ML VIAL SQ SCH ×2 (08:11→12:20)
[2018-07-08] MEDS: Budesonide/Formoterol 160/4.5 1 PUFF INH IH SCH (09:21)
[2018-07-08] MEDS: Insulin NPH/REG 70/30 100 UNIT/ML (x5UNIT) SQ SCH (09:30)
--- NOTE | 2018-07-08 09:39 | Discharge Summary ---
Date of Encounter: 07/08/18 Time of Encounter: 09:25 - Discharge Diagnosis (1) Bacterial infection due to Proteus mirabilis Priority: Primary Status: Acute (2) Pulmonary interstitial fibrosis Priority: Secondary Status: Chronic (3) Hypomagnesemia Priority: Secondary Status: Acute (4) Anemia Priority: Secondary Status: Chronic Qualifiers: Anemia type: iron deficiency Iron deficiency anemia type: unspecified iron deficiency Qualified Code(s): D50.9 - Iron deficiency anemia, unspecified (5) Acute on chronic diastolic CHF (congestive heart failure) Priority: Secondary Status: Acute (6) Type 2 diabetes mellitus Priority: Secondary Status: Chronic Qualifiers: Diabetes mellitus longwall headgate operator insulin use: with longwall headgate operator use Diabetes mellitus complication status: without complication Qualified Code(s): E11.9 - Type 2 diabetes mellitus without complications; Z79.4 - predatory animal exterminator (current) use of insulin (7) Atrial fibrillation Priority: Secondary Status: Chronic Qualifiers: Atrial fibrillation type: chronic Qualified Code(s): I48.2 - Chronic atrial fibrillation (8) Right leg DVT Priority: Secondary Status: Chronic Qualifiers: Affected thrombotic vein of extremity: unspecified vein of extremity Chronicity: acute Qualified Code(s): I82.401 - Acute embolism and thrombosis of unspecified deep veins of right lower extremity (9) Weakness Priority: Secondary Status: Chronic (10) UTI (urinary tract infection) Priority: Secondary Status: Acute Qualifiers: Urinary tract infection type: site unspecified Hematuria presence: without hematuria Qualified Code(s): N39.0 - Urinary tract infection, site not specified Hospital course: Ms. Robles is a 78 year old female who was hospitalized at [facility] June 21 with diagnosis of bilateral pneumonia. Sputum and urine culture grew MDR Proteus mirabilis. She was treated during hospitalization with Zosyn. She was discharged to swing bed at [facility] to receive ertapenem for 6 days. She also will receive PT and OT for strengthening prior to returning home. Initial orders were written by the discharging physicians at [facility]. I saw her on June 28 and performed a swing that history and physical. She continued ertapenem with lactobacillus for 6 days in swing bed. She had no evidence of significant infection following discontinuation. She continued oxygen 24/7 for pulmonary fibrosis. Magnesium oxide dose was reduced to 400 mg twice a day. Her magnesium level remained stable on this dose. Anemia testing showed iron 67, transferrin saturation 23 %, transferrin 205, ferritin 775, B12 660, and folate > 22.3. Supplemental folic acid and ferrous sulfate will be discontinued. BN peptide had risen slightly to 324 by day of discharge. She was changed from Lasix to Bumex. Labs will be monitored at the SNF. Hemoglobin A1c returned elevated at 8.5%. Humulin 70/30 dose was changed to 30 units twice a day with initially good overall control. This will be increased to 40 units twice a day at the SNF to improve control. Coumadin dose was adjusted to keep INR in appropriate range. Lopressor was continued. She had physical therapy and occupational therapy with ongoing intervention. By July 06 she had plateaued in progress with therapy. Arrangements were made for her to go to a local SNF for ongoing care needs. She been placed on low-dose prophylactic Septra for recurrent UTIs. Because of worsening azotemia and hyperkalemia this will be held at discharge. She will be discharged to [facility] today for ongoing therapy and care needs. - Time Spent with Patient Total time spent providing and/or coordinating discharge services: - Discharge Medications Prescriptions: New Bumetanide [Bumex] 0.5 mg PO DAILY tablet Magnesium Oxide [Mag-Ox] 400 mg PO BID tablet Warfarin [Coumadin] 4 mg PO 1800 365 Days tablet Continue Escitalopram [Lexapro] 20 mg PO HS Lipase/Protease/Amylase [Creon Dr 12,000 Units Capsule] 36,000 tab PO TID Loperamide HCl [Imodium A-D] 2 mg PO QID PRN PRN Reason: Diarrhea Fluticasone Propionate Nasal [Flonase] 2 spr NS BID PRN PRN Reason: Allergy Symptoms Multivitamin [One Daily Multivitamin] 1 tab PO DAILY Aspirin [Adult Aspirin] 81 mg PO DAILY Bupropion HCl [Wellbutrin Xl] 300 mg PO DAILY Nystatin POWDER [Nystop] 1 appl TP BID PRN PRN Reason: YEAST UNDER BREAST Mupirocin [Bactroban Oint] 1 appl NS DAILY PRN PRN Reason: DRYNESS Dextran 70/Hypromellose [Artificial Tears Eye Drops] 2 drop BOTH EYES DAILY PRN PRN Reason: Dry Eye(S) Cholecalciferol (Vitamin D3) [Vitamin D3] 2,000 unit PO DAILY Insulin NPH Hum/Reg Insulin Hm [Humulin 70/30 Kwikpen] 80 unit SQ BID Diltiazem CD (24hr) [Cardizem CD] 360 mg PO DAILY 30 Days #60 cap.er.24h Metoprolol [Lopressor] 12.5 mg PO BID 30 Days #60 tablet Changed Albuterol Sulfate [Proair Hfa] 2 puff IH Q4H PRN #0 PRN Reason: Shortness Of Breath Discontinued Magnesium Oxide [Magnesium] 400 mg PO 5XD Folic Acid 1 mg PO DAILY Ferrous Sulfate [Iron] 650 mg PO DAILY Warfarin [Coumadin] 5 mg PO DAILY Furosemide [Lasix] 20 mg PO DAILY 30 Days #30 tablet Sulfamethoxazole/Trimeth DS [Bactrim DS] 1 each PO DAILY Sulfamethoxazole/Trimeth DS [Bactrim DS] 1 each PO DAILY Home Medications: Escitalopram [Lexapro] 20 mg PO HS 12/29/15 [History] Lipase/Protease/Amylase [Beth Dr 12,000 Units Capsule] 36,000 tab PO TID 10/14/16 [History] Loperamide HCl [Imodium A-D] 2 mg PO QID PRN 10/14/16 [History] Fluticasone Propionate Nasal [Flonase] 2 spr NS BID PRN 10/01/17 [History] Multivitamin [One Daily Multivitamin] 1 tab PO DAILY 11/01/17 [History] Aspirin [Adult Aspirin] 81 mg PO DAILY 02/11/18 [History] Bupropion HCl [Wellbutrin Xl] 300 mg PO DAILY 02/16/18 [History] Cholecalciferol (Vitamin D3) [Vitamin D3] 2,000 unit PO DAILY 06/13/18 [History] Dextran 70/Hypromellose [Artificial Tears Eye Drops] 2 drop BOTH EYES DAILY PRN 06/13/18 [History] Insulin NPH Hum/Reg Insulin Hm [Humulin 70/30 Kwikpen] 80 unit SQ BID 06/13/18 [History] Mupirocin [Bactroban Oint] 1 appl NS DAILY PRN 06/13/18 [History] Nystatin POWDER [Nystop] 1 appl TP BID PRN 06/13/18 [History] Diltiazem CD (24hr) [Cardizem CD] 360 mg PO DAILY 30 Days #60 cap.er.24h 06/17/18 [Rx] Metoprolol [Lopressor] 12.5 mg PO BID 30 Days #60 tablet 06/17/18 [Rx] Albuterol Sulfate [Proair Hfa] 2 puff IH Q4H PRN #0 07/08/18 [Rx] Bumetanide [Bumex] 0.5 mg PO DAILY tablet 07/08/18 [Rx] Magnesium Oxide [Mag-Ox] 400 mg PO BID tablet 07/08/18 [Rx] Warfarin [Coumadin] 4 mg PO 1800 365 Days tablet 07/08/18 [Rx] Allergies/Adverse Reactions: Allergy/AdvReac Type Severity Reaction Status Date / Time levofloxacin [From Levaquin] Allergy Seizure Verified 07/05/18 13:59 hydromorphone [From Dilaudid] AdvReac Vomiting Verified 07/05/18 13:59 morphine AdvReac Vomiting Verified 07/05/18 13:59 oxycodone [From Percocet] AdvReac Vomiting Verified 07/05/18 13:59 propoxyphene AdvReac Vomiting Verified 07/05/18 13:59 [From Darvocet-N 100] Date of admission: 06/27/18 15:16 Primary care physician: PCP NONE Consults: 06/27/18 15:22 Consult to Occupational Therapy [CONS] Routine Comment: Evaluate, Develop, Implement Plan of Care Reason for Consult: Evaluate, Develop and Implement Plan of Care Does patient have active BEDREST order?: No Is patient medically & hemodynamically stable?: Yes Patient assessed for mobility or mobilized this visit?: No Consult to Physical Therapy [CONS] Routine Comment: Evaluate, Plan and Implement Plan of Care Reason for Consult: Evaluate, Plan and Implement Plan of Care Does patient have active BEDREST order?: No Is patient medically & hemodynamically stable?: Yes Patient assessed for mobility or mobilized this visit?: No Consult to Chair Finisher [CONS] Routine Reason for SW Consult: Discharge planning - Constitutional Vitals: Temp Pulse Resp BP Pulse Ox 98.2 F 80 18 125/52 92 07/08/18 06:40 07/08/18 06:40 07/08/18 09:22 07/08/18 06:40 07/08/18 09:22 - Patient Status Disposition: Transfer SNF - Discharge Instructions - Diet and Activity Activity: as per physical therapy Diet: diabetic diet
--- NOTE | 2018-07-08 09:53 | Physician Discharge Referral ---
ExtendedCare Referral Info Transfer To: [facility] Provider in Charge: Elton Provider in Charge after Transfer: PCP Collin) Institutional Level of Care: Skilled - Diagnosis (1) Bacterial infection due to Proteus mirabilis Priority: Primary Status: Resolved (2) Pulmonary interstitial fibrosis Priority: Secondary Status: Chronic (3) Hypomagnesemia Priority: Secondary Status: Acute (4) Anemia Priority: Secondary Status: Chronic (5) Acute on chronic diastolic CHF (congestive heart failure) Priority: Secondary Status: Acute (6) Type 2 diabetes mellitus Priority: Secondary Status: Chronic (7) Atrial fibrillation Priority: Secondary Status: Chronic (8) Right leg DVT Priority: Secondary Status: Chronic (9) Weakness Priority: Secondary Status: Chronic (10) UTI (urinary tract infection) Priority: Secondary Status: Acute Prognosis: Fair Aware of Diagnosis: Patient, Family Aware of Prognosis: Patient, Family - Transfer Medications Prescriptions: Warfarin [Coumadin] 4 mg PO 1800 365 Days tablet Home Medications: Escitalopram [Lexapro] 20 mg PO HS 12/29/15 [History] Lipase/Protease/Amylase [Creon Dr 12,000 Units Capsule] 36,000 tab PO TID 10/14/16 [History] Loperamide HCl [Imodium A-D] 2 mg PO QID PRN 10/14/16 [History] Fluticasone Propionate Nasal [Flonase] 2 spr NS BID PRN 10/01/17 [History] Multivitamin [One Daily Multivitamin] 1 tab PO DAILY 11/01/17 [History] Aspirin [Adult Aspirin] 81 mg PO DAILY 02/11/18 [History] Bupropion HCl [Wellbutrin Xl] 300 mg PO DAILY 02/16/18 [History] Cholecalciferol (Vitamin D3) [Vitamin D3] 2,000 unit PO DAILY 06/13/18 [History] Dextran 70/Hypromellose [Artificial Tears Eye Drops] 2 drop BOTH EYES DAILY PRN 06/13/18 [History] Mupirocin [Bactroban Oint] 1 appl NS DAILY PRN 06/13/18 [History] Nystatin POWDER [Nystop] 1 appl TP BID PRN 06/13/18 [History] Diltiazem CD (24hr) [Cardizem CD] 360 mg PO DAILY 30 Days #60 cap.er.24h 06/17/18 [Rx] Metoprolol [Lopressor] 12.5 mg PO BID 30 Days #60 tablet 06/17/18 [Rx] Albuterol Sulfate [Proair Hfa] 2 puff IH Q4H PRN #0 07/08/18 [Rx] Bumetanide [Bumex] 0.5 mg PO DAILY tablet 07/08/18 [Rx] Insulin NPH/REG 70/30 (HUMAN) [Humulin 70/30 Vial] 40 unit SQ BIDWM 07/08/18 [Rx] Magnesium Oxide [Mag-Ox] 400 mg PO BID tablet 07/08/18 [Rx] Warfarin [Coumadin] 4 mg PO 1800 365 Days tablet 07/08/18 [Rx] Allergies/Adverse Reactions: Allergy/AdvReac Type Severity Reaction Status Date / Time levofloxacin [From Levaquin] Allergy Seizure Verified 07/05/18 13:59 hydromorphone [From Dilaudid] AdvReac Vomiting Verified 07/05/18 13:59 morphine AdvReac Vomiting Verified 07/05/18 13:59 oxycodone [From Percocet] AdvReac Vomiting Verified 07/05/18 13:59 propoxyphene AdvReac Vomiting Verified 07/05/18 13:59 [From Darvocet-N 100] - Respiratory Orders Oxygen / L per min (2 L/m by nasal cannula 09/11.) Smoking Cessation: Smoking cessation has been advised. For more information, call the [place] Tobacco Quit Line at 1-970-ZJVR-NOW. - Lab Orders Lab Orders: Other (include drug levels w/frequency) (CBC with differential, BMP, BNP peptide, magnesium, PT/INR in 3 days) - Mobility Orders Ambulate - Rehabiliation Orders Rehab Potential: Fair Rehab Orders: Evaluation for Physical Therapy, Evaluation for Occupational Therapy - Diet Orders No Concentrated Sweets CERTIFICATION: I certify that the transfer of the above named patient to an Extended Care [facility] is necessary for the continuing treatment of the diagnosis listed. The above information is true and accurate reflection of patient's current condition. Confidential - Redisclosure prohibited without a patient's written consent.
[2018-07-08] MEDS ORDERED: Warfarin perPT PO PRN (18:00)
== END 2018-07-08 11:40 | DRG 945 ==
LOC: INPPIK 15:16
PROVIDERS: ADMIT Internal Medicine; ATTEND Internal Medicine